=== PATIENT | male | born 1940 | race African-American/Black ===

== ENCOUNTER 2017-10-31 14:06 | Emergency (ER) | payer MEDICARE, MEDICAID ==
[2017-10-31 15:05] LABS: #Lymphocytes 1.6 thou/uL (1.20-3.40); #Monocytes 0.5 thou/uL (0.11-0.59); #Neutrophils 3.3 thou/uL (1.40-6.50); %Basophils 0.8 % (0.0-1.0); %Eosinophils 0.3 % (0.0-10.0); %Lymphocytes 29.6 % (21.0-51.0); %Neutrophils 60.3 % (42.0-75.0); Mean Corpuscular HGB CONC 31.3 g/dL (32.0-36.0); Mean Corpuscular Hemoglobin 30.5 pg (27.0-31.0); Mean Corpuscular Volume 97.3 fl (80.0-94.0); Mean Platelet Volume 7.6 fL (7.4-10.4); Platelet Count 173 thou/uL (130-400); RBC Distribution Width 19.4 % (11.5-14.5); Red Blood Cell (RBC) Count 2.94 mill/uL (4.70-6.10); White Blood Cell (WBC) Count 5.5 thou/uL (4.8-10.8)
--- NOTE | 2017-10-31 15:08 | RAD ---
TWO VIEW CHEST: History: Dyspnea. Dyspnea on exertion. Comparison: 05-07-15 FINDINGS: Heart size is within normal range. Mild vascular engorgement. There may be some mild interstitial pro minence which could potentially represent mild interstitial congestion given the above history. No fo chiki infiltrate or effusion. IMPRESSION: Mild vascular engorgement and question interstitial congestion. POS: [facility]
[2017-10-31 15:13] LABS: ALT (SGPT) 18 U/L (8-55); AST (SGOT) 32 U/L (5-34); Albumin 3.7 g/dL (3.4-4.8); Alkaline Phosphatase 68 U/L (40-150); Anion Gap 15 mmol/L (10-20); BUN (Urea Nitrogen) 17 mg/dL (8.4-25.7); Bilirubin, Total 0.3 mg/dL (0.2-1.2); Calc. Creatinine Clearance 0 mL/min (70-130); Calcium 9.1 mg/dL (7.8-10.44); Carbon Dioxide 24 mmol/L (23-31); Chloride 99 mmol/L (98-107); Estimated GFR-MDRD 63; Globulin 6.6 g/dL (2.4-3.5); Glucose 100 mg/dL (83-110); Potassium 4.7 mmol/L (3.5-5.1); Protein, Total 10.3 g/dL (5.8-8.1); Sodium 133 mmol/L (136-145)
[2017-10-31 15:20] LABS: Anisocytosis MODERATE=16-30 cells (100X) (0-5/hpf); Hypochromia SLIGHT = 6-15 cells (100X) (0-5/hpf); MDiff Complete? YES; PLT Morphology Comment Appears Adequate; Target Cells SLIGHT = 2-5 cells (100X) (0-1/hpf)
[2017-10-31] MEDS ORDERED: methylPREDNISolone Sod Succ/PF 125 MG/2 ML VIAL ONE (15:45)
[2017-10-31] MEDS ORDERED: Azithromycin 250 MG TAB ONE (15:45)
== END 2017-10-31 16:26 | disposition home or self-care (01) ==
LOC: NAV ERS 14:06
DX: J44.1 Chronic obstructive pulmonary disease with (acute) exacerbation (principal); D64.9 Anemia, unspecified; I10 Essential (primary) hypertension; Z87.891 Personal history of nicotine dependence; Z79.899 Other long term (current) drug therapy
CPT/HCPCS: 71046; 80053; 83880; 85025; 93005; 94640; 94760; 96374; J2930; J7620

== ENCOUNTER 2017-11-05 13:57 | Emergency (ER) | payer MEDICARE, OTHER, MEDICAID ==
--- NOTE | 2017-11-05 14:56 | RAD ---
CHEST 2 VIEWS: Date: 11/05/17 HISTORY: Dyspnea. COMPARISON: 10/31/17. FINDINGS: Cardiac silhouette and pulmonary vasculature is unremarkable. Mediastinum is midline. Lungs are hyper inflated with flattening of each hemidiaphragm and scattered areas of scarring that are similar in ap pearance to the prior study. Mediastinum is midline. No confluent air space consolidation, pneumothor ax, or pleural fluid. environmental monitoring technician leads overlie the chest. IMPRESSION: No active cardiopulmonary abnormalities are demonstrated. POS: [facility]
[2017-11-05 15:10] LABS: CKMB 3.9 ng/mL (0-6.6); Troponin I Less than 0.010 ng/mL (< 0.028)
[2017-11-05 15:16] LABS: ALT (SGPT) 30 U/L (8-55); AST (SGOT) 28 U/L (5-34); Albumin 3.3 g/dL (3.4-4.8); Alkaline Phosphatase 56 U/L (40-150); Anion Gap 11 mmol/L (10-20); BUN (Urea Nitrogen) 29 mg/dL (8.4-25.7); Bilirubin, Total 0.2 mg/dL (0.2-1.2); Calc. Creatinine Clearance 0 mL/min (70-130); Calcium 8.9 mg/dL (7.8-10.44); Carbon Dioxide 27 mmol/L (23-31); Chloride 101 mmol/L (98-107); Estimated GFR-MDRD 60; Globulin 5.7 g/dL (2.4-3.5); Glucose 93 mg/dL (83-110); Potassium 4.4 mmol/L (3.5-5.1); Sodium 135 mmol/L (136-145)
[2017-11-05 15:27] LABS: Hemoglobin 9.5 g/dL (14.0-18.0); Mean Corpuscular HGB CONC 31.3 g/dL (32.0-36.0); Mean Corpuscular Hemoglobin 30.6 pg (27.0-31.0); Mean Platelet Volume 7.5 fL (7.4-10.4); Platelet Count 234 thou/uL (130-400); RBC Distribution Width 18.7 % (11.5-14.5); White Blood Cell (WBC) Count 7.3 thou/uL (4.8-10.8)
[2017-11-05 15:28] LABS: %Monocytes 10.6 % (0.0-10.0)
[2017-11-05 15:49] LABS: #Basophils 0.1 thou/uL (0.0-0.2); #Lymphocytes 2.7 thou/uL (1.20-3.40); #Monocytes 0.8 thou/uL (0.11-0.59); #Neutrophils 3.7 thou/uL (1.40-6.50); %Basophils 0.7 % (0.0-1.0); %Eosinophils 0.4 % (0.0-10.0); %Lymphocytes 37.1 % (21.0-51.0); %Neutrophils 51.1 % (42.0-75.0); Anisocytosis SLIGHT = 6-15 cells (100X) (0-5/hpf); Hypochromia SLIGHT = 6-15 cells (100X) (0-5/hpf); MDiff Complete? YES; PLT Morphology Comment Appears Adequate
== END 2017-11-05 16:15 | disposition home or self-care (01) ==
LOC: NAV ERS 13:57
DX: J44.1 Chronic obstructive pulmonary disease with (acute) exacerbation (principal); I10 Essential (primary) hypertension; Z87.891 Personal history of nicotine dependence; Z79.891 Long term (current) use of opiate analgesic; Z79.52 Long term (current) use of systemic steroids; Z79.899 Other long term (current) drug therapy
CPT/HCPCS: 71046; 80053; 82553; 83880; 84484; 85025; 93005; 94640; 94760; J7620

== ENCOUNTER 2017-12-27 08:32 | Emergency (ER) | payer MEDICARE, OTHER ==
[2017-12-27] MEDS ORDERED: Lidocaine 1% 20 ML MDV ONE (08:51)
[2017-12-27] MEDS ORDERED: Clindamycin 150 MG CAP ONE (09:13)
== END 2017-12-27 09:27 | disposition home or self-care (01) ==
LOC: NAV ERS 08:32
DX: M71.521 Other bursitis, not elsewhere classified, right elbow (principal); I10 Essential (primary) hypertension; J43.9 Emphysema, unspecified; Z87.891 Personal history of nicotine dependence; Z79.891 Long term (current) use of opiate analgesic; Z79.899 Other long term (current) drug therapy
CPT/HCPCS: 23931; J2001

== ENCOUNTER 2017-12-29 09:06 | Emergency (ER) | payer MEDICARE, OTHER | END 2017-12-29 10:03 | disposition home or self-care (01) | LOC: NAV ERS 09:06 | DX: Z48.817 Encounter for surgical aftercare following surgery on the skin and subcutaneous tissue (principal); M71.121 Other infective bursitis, right elbow; I10 Essential (primary) hypertension; J43.9 Emphysema, unspecified; Z48.01 Encounter for change or removal of surgical wound dressing; Z87.891 Personal history of nicotine dependence; Z79.891 Long term (current) use of opiate analgesic; Z79.899 Other long term (current) drug therapy | CPT/HCPCS: 99282 ==

== ENCOUNTER → 2017-12-31 | Emergency (ER) | payer MEDICARE, OTHER ==
--- NOTE | 2017-12-31 11:49 | ULT ---
LIMITED SONOGRAPHIC EVALUATION SUBCUTANEOUS SOFT TISSUES RIGHT ELBOW: Date: 12-31-17 History: Patient is post incision and drainage of abscess collection right elbow. This is for re-evaluation an d re-packing of the collection. FINDINGS: Limited sonographic evaluation of the subcutaneous soft tissues at the level of the right elbow was p erformed. There is a small heterogeneous collection seen at the level of the right elbow just below the skin bauman rface measuring 2.1 cm x 0.6 cm. Color flow evaluation demonstrates no flow within this structure. Th is may be related to collection secondary to infection or possibly hemorrhage. This cannot be delinea porter on sonographic evaluation. No other collection is visualized. IMPRESSION: Small heterogeneous collection right elbow with measurements as described above. There is no flow wit hin this structures, and this may be related to residual infectious process/abscess collection. Hemat linda would give a similar appearance on sonographic evaluation. POS: [facility]
== END ==
LOC: NAV ERS 10:39
DX: L02.413 Cutaneous abscess of right upper limb (principal); I10 Essential (primary) hypertension; J43.9 Emphysema, unspecified; Z87.891 Personal history of nicotine dependence; Z79.899 Other long term (current) drug therapy
CPT/HCPCS: 76882

== ENCOUNTER 2019-12-13 17:47 | Emergency (ER) | payer MEDICARE, MEDICAID ==
[~2019-12-13 17:47] MED LIST: Iopamidol 370 76% 100 ML VIAL ONE
[2019-12-13] MEDS ORDERED: Sodium Chloride 0.9% 1,000 ML ONE (18:23)
[2019-12-13] MEDS ORDERED: Bisacodyl 10 MG SUPP ONE (18:38)
[2019-12-13] MEDS ORDERED: Bisacodyl 5 MG TAB ONE (18:38)
[2019-12-13 18:55] LABS: #Lymphocytes 1.6 thou/uL (1.20-3.40); #Monocytes 0.4 thou/uL (0.11-0.59); #Neutrophils 4.5 thou/uL (1.40-6.50); %Basophils 0.5 % (0.0-1.0); %Eosinophils 0.2 % (0.0-10.0); %Lymphocytes 24.7 % (21.0-51.0); %Monocytes 6.3 % (0.0-10.0); %Neutrophils 68.3 % (42.0-75.0); Hemoglobin 8.6 g/dL (14.0-18.0); Mean Corpuscular HGB CONC 30.1 g/dL (32.0-36.0); Mean Corpuscular Hemoglobin 28.9 pg (27.0-31.0); Mean Platelet Volume 5.4 fL (7.4-10.4); Platelet Count 286 thou/uL (130-400); Red Blood Cell (RBC) Count 2.96 mill/uL (4.70-6.10); White Blood Cell (WBC) Count 6.5 thou/uL (4.8-10.8)
[2019-12-13 19:00] LABS: Bilirubin Negative (Negative); Blood, Urine Trace (Negative); Clarity Clear (Clear); Glucose, Urine (Dipstick) Negative (Negative); Leukocyte Large (Negative); Nitrite Negative (Negative); Protein, Urine (Dipstick) 30 mg/dL (Neg-Trace); Urobilinogen 0.2 mg/dL (Less than 2)
[2019-12-13 19:01] LABS: ALT (SGPT) 9 U/L (8-55); AST (SGOT) 11 U/L (5-34); Albumin 3.5 g/dL (3.4-4.8); Alkaline Phosphatase 77 U/L (40-110); Anion Gap 14 mmol/L (10-20); BUN (Urea Nitrogen) 20 mg/dL (8.4-25.7); Bilirubin, Total 0.3 mg/dL (0.2-1.2); Calc. Creatinine Clearance 0 mL/min (70-130); Calcium 10.3 mg/dL (7.8-10.44); Carbon Dioxide 29 mmol/L (23-31); Chloride 95 mmol/L (98-107); Estimated GFR-MDRD 49; Globulin 5.7 g/dL (2.4-3.5); Glucose 117 mg/dL (83-110); Lipase 10 U/L (8-78); Potassium 4.4 mmol/L (3.5-5.1); Protein, Total 9.2 g/dL (5.8-8.1); Sodium 134 mmol/L (136-145)
[2019-12-13 19:05] LABS: Bacteria/HPF 3+ HPF (None Seen); RBC/HPF 0-3 HPF (0-3); Squamous Epithelial 0-3 HPF (0-3); WBC/HPF Greater than 50 HPF (0-3)
[2019-12-13 19:43] LABS: Anisocytosis MODERATE=16-30 cells (100X) (0-5/hpf); Hypochromia SLIGHT = 6-15 cells (100X) (0-5/hpf); MDiff Complete? YES; Platelet Morphology Comment Appears Adequate; Poikilocytosis SLIGHT = 6-15 cells (100X) (0-5/hpf)
--- NOTE | 2019-12-13 20:38 | CT ---
CT ABDOMEN AND PELVIS WITH CONTRAST: 12/13/19 HISTORY: Abdominal pain. Constipation. COMPARISON: None. FINDINGS: High grade emphysematous changes in the lung bases. In the right middle lobe, there is bronchiectasis with distal bronchial mucus plugging. No significant pericardial fluid. There are dilated loops of small bowel proximally due to a small ob structing supraumbilical ventral hernia which contains the transitional point. The loops of small bow el proximal to this contain high density debris concerning for component of hemorrhage. There is mild intermesenteric fluid. Small bowel measures up to 4 cm in size. There is a small volume perihepatic fluid. There is also a small bowel containing umbilical hernia wi thout obstruction. The appendix is felt to be visualized and is normal. Spleen is small. Pancreas is unremarkable. No intrahepatic or extrahepatic biliary dilatation. Multiple sub 5 mm hypodensities of the liver. Gallbladder is not distended. IMPRESSION: High grade small bowel obstruction due to an incarcerated supraumbilical hernia with a tiny neck cont aining a loop of small bowel. The small bowel distal to this is completely collapsed. There is small volume perihepatic ascites as well as intermesenteric fluid as well mild density debris within the buddy men of the small bowel concerning for loss of normal small bowel integrity and hemorrhage. Urgent german gical consultation is advised. There are small locules of gas in the nondependent portion of the smal l bowel without definite intramucosal or intrasubmucosal gas. POS: HOME
== END 2019-12-13 21:51 | disposition short-term general hospital (02) ==
LOC: NAV ERS 17:47
DX: K56.609 Unspecified intestinal obstruction, unspecified as to partial versus complete obstruction (principal); K43.6 Other and unspecified ventral hernia with obstruction, without gangrene; D64.9 Anemia, unspecified; I10 Essential (primary) hypertension; J43.9 Emphysema, unspecified; Z87.891 Personal history of nicotine dependence; Z79.899 Other long term (current) drug therapy
CPT/HCPCS: 36415; 74177; 80053; 81003; 81015; 82274; 83690; 85025; 96360; J7050; Q9967